=== PATIENT | male | born 1990 | race Hispanic/Latino ===

== ENCOUNTER 2021-04-25 10:12 | Emergency (ER) | payer OTHER ==
[~2021-04-25] VITALS: Ht 180.3 cm; Wt 109.6 kg
[2021-04-25] MEDS ORDERED: ONDANSETRON 4 MG ORAL DISINTEGRATING TAB PO ONE (11:45)
[2021-04-25 12:24] LABS: APPEARANCE, URINE CLEAR (CLEAR); BACTERIA, URINE AUTO NEGATIVE (NEGATIVE); BASO % 0.2 % (0.0-1.0); BILIRUBIN, URINE AUTO NEGATIVE (NEGATIVE); BLOOD, URINE BLOOD NEGATIVE (NEGATIVE); COLOR, URINE YELLOW (YELLOW); EOS % 0.3 % (0.0-3.0); GLUCOSE, URINE (UA) AUTO NEGATIVE (NEGATIVE); HEMATOCRIT 50.8 % (42.0-52.0); HEMOGLOBIN 17.2 g/dl (13.5-17.5); KETONE, URINE AUTO NEGATIVE (NEGATIVE); LEUKOCYTE ESTERASE, URINE AUTO NEGATIVE (NEGATIVE); LYMPH # 0.4 10^3/uL (1.5-5.0); LYMPH % 3.8 % (24.0-44.0); MEAN CORPUSCULAR HEMOGLOBIN 29.9 pg (27.0-33.0); MEAN CORPUSCULAR HGB CONC 33.9 g/dl (32.0-36.5); MEAN CORPUSCULAR VOLUME 88.2 fl (80.0-96.0); MONO # 0.4 10^3/uL (0.0-0.8); MONO % 3.3 % (2.0-8.0); MUCUS, URINE SMALL (NEGATIVE); NEUTROPHILS # 10.3 10^3/uL (1.5-8.5); NITRITE, URINE AUTO NEGATIVE (NEGATIVE); PLATELET COUNT, AUTOMATED 255 10^3/uL (150-450); PROTEIN, URINE AUTO 1+ mg/dL (NEGATIVE); RBC, URINE AUTO 2 /HPF (0-3); RED BLOOD COUNT 5.76 10^6/uL (4.30-6.10); SPECIFIC GRAVITY URINE AUTO 1.029 (1.002-1.035); SQUAMOUS EPITHELIAL CELL UR AU 0 /HPF (0-6); UROBILINOGEN, URINE AUTO 0.2 mg/dL (0.0-2.0); WBC, URINE AUTO 0 /HPF (0-3); WHITE BLOOD COUNT 11.2 10^3/uL (4.0-10.0)
[2021-04-25] MEDS ORDERED: ONDA4TAB6 PO (12:38)
[2021-04-25 12:50] VITALS: BP 165/93
== END 2021-04-25 12:52 | disposition home or self-care (01) ==
LOC: M ED 10:12
DX: A08.4 Viral intestinal infection, unspecified (principal); E86.0 Dehydration; R11.2 Nausea with vomiting, unspecified; R19.7 Diarrhea, unspecified; Z20.9 Contact with and (suspected) exposure to unspecified communicable disease; J30.2 Other seasonal allergic rhinitis
CPT/HCPCS: 36415; 80047; 81001; 85025; 99284; Q0162

== ENCOUNTER 2024-01-04 04:55 | Emergency (ER) | payer OTHER ==
[~2024-01-04] VITALS: Ht 188 cm; Wt 118.0 kg
[~2024-01-04 04:55] MED LIST: ONDA4TAB6 PO
[2024-01-04] MEDS ORDERED: MINI2CAP PO (05:10)
[2024-01-04 05:53] LABS: BLOOD UREA NITROGEN 25 MG/DL (9-23); CALCIUM LEVEL 8.9 MG/DL (8.5-10.1); CARBON DIOXIDE LEVEL 25 MMOL/L (20-31); CHLORIDE LEVEL 104 MMOL/L (98-107); CREATININE FOR GFR 1.27 MG/DL (0.70-1.30); GLOMERULAR FILTRATION RATE > 60.0 (>60); GLUCOSE, FASTING 143 MG/DL (60-100); POTASSIUM SERUM 3.9 MMOL/L (3.5-5.1); SODIUM LEVEL 138 MMOL/L (136-145)
[2024-01-04 06:14] LABS: BASO % 0.5 % (0.0-1.0); EOS # 0.2 10^3/uL (0.0-0.5); EOS % 2.1 % (0.0-3.0); HEMATOCRIT 44.6 % (42.0-52.0); HEMOGLOBIN 15.5 g/dl (13.5-17.5); LYMPH # 3.3 10^3/uL (1.5-5.0); LYMPH % 42.3 % (24.0-44.0); MEAN CORPUSCULAR HEMOGLOBIN 30.4 pg (27.0-33.0); MEAN CORPUSCULAR HGB CONC 34.8 g/dl (32.0-36.5); MEAN CORPUSCULAR VOLUME 87.5 fl (80.0-96.0); MONO # 0.6 10^3/uL (0.0-0.8); MONO % 8.1 % (2.0-8.0); NEUTROPHILS # 3.6 10^3/uL (1.5-8.5); NEUTROPHILS % 46.6 % (36.0-66.0); PLATELET COUNT, AUTOMATED 258 10^3/uL (150-450); WHITE BLOOD COUNT 7.8 10^3/uL (4.0-10.0)
[2024-01-04] MEDS: NS 1,000 ML IV ONE (06:15)
[2024-01-04 08:10] VITALS: BP 114/59; TEMP 97.9; O2SAT 99
== END 2024-01-04 08:24 | disposition home or self-care (01) ==
LOC: M ED 04:55 → EDBD 04:55 → M ED 08:24
DX: R55 Syncope and collapse (principal); T46.5X5A Adverse effect of other antihypertensive drugs, initial encounter; E86.0 Dehydration; F43.10 Post-traumatic stress disorder, unspecified; G47.33 Obstructive sleep apnea (adult) (pediatric); Z79.899 Other long term (current) drug therapy

== ENCOUNTER 2024-05-07 11:23 | Emergency (ER) | payer OTHER ==
[~2024-05-07] VITALS: Ht 180.3 cm; Wt 124.1 kg
[~2024-05-07 11:23] MED LIST changes: +MINI2CAP PO; +ONDA-282 PO; -ONDA4TAB6 PO
[2024-05-07 13:02] LABS: ALBUMIN 3.9 G/DL (3.2-5.2); ALKALINE PHOSPHATASE 86 U/L (46-116); ALT/SGPT 89 U/L (7.0-40); AST/SGOT 54 U/L (<34); BILIRUBIN,DIRECT 0.3 MG/DL (<0.4); BILIRUBIN,TOTAL 1.4 MG/DL (0.3-1.2); BLOOD UREA NITROGEN 12 MG/DL (9-23); CALCIUM LEVEL 9.1 MG/DL (8.5-10.1); CARBON DIOXIDE LEVEL 25 MMOL/L (20-31); CHLORIDE LEVEL 109 MMOL/L (98-107); CREATININE FOR GFR 0.96 MG/DL (0.70-1.30); GLOMERULAR FILTRATION RATE > 60.0 (>60); GLUCOSE, FASTING 92 MG/DL (60-100); LIPASE 36 U/L (12-53); POTASSIUM SERUM 4.4 MMOL/L (3.5-5.1); SODIUM LEVEL 141 MMOL/L (136-145)
[2024-05-07 13:51] LABS: BASO # 0.1 10^3/uL (0.0-0.2); BASO % 0.8 % (0.0-1.0); EOS # 0.5 10^3/uL (0.0-0.5); EOS % 7.4 % (0.0-3.0); HEMATOCRIT 45.3 % (42.0-52.0); HEMOGLOBIN 15.7 g/dl (13.5-17.5); LYMPH # 1.9 10^3/uL (1.5-5.0); LYMPH % 30.8 % (24.0-44.0); MEAN CORPUSCULAR HEMOGLOBIN 29.8 pg (27.0-33.0); MEAN CORPUSCULAR HGB CONC 34.7 g/dl (32.0-36.5); MEAN CORPUSCULAR VOLUME 86.1 fl (80.0-96.0); MONO # 0.6 10^3/uL (0.0-0.8); MONO % 9.8 % (2.0-8.0); NEUTROPHILS # 3.2 10^3/uL (1.5-8.5); NEUTROPHILS % 50.9 % (36.0-66.0); PLATELET COUNT, AUTOMATED 264 10^3/uL (150-450); RED BLOOD COUNT 5.26 10^6/uL (4.30-6.10); WHITE BLOOD COUNT 6.2 10^3/uL (4.0-10.0)
[2024-05-07] MEDS: METOCLOPRAMIDE INJ 10MG/2ML VIAL IV ONE (13:54)
[2024-05-07] MEDS: ONDANSETRON 4MG 2ML VIAL IV ONE (13:54)
[2024-05-07] MEDS: NS 1,000 ML IV ONE (13:55)
[2024-05-07] MEDS ORDERED: HYDR-3363 PO (14:08)
[2024-05-07] MEDS ORDERED: PRAZ1CAP PO (14:08)
[2024-05-07] MEDS ORDERED: DULO1CAP5 PO (14:08)
[2024-05-07] MEDS ORDERED: METO200T15 PO (14:08)
[2024-05-07] MEDS ORDERED: VITA200032 PO (14:08)
[2024-05-07] MEDS ORDERED: ONDA-282 PO (15:53)
[2024-05-07] MEDS ORDERED: LOPE1CAP5 PO (15:53)
[2024-05-07 16:21] VITALS: BP 135/92; TEMP 96.5; O2SAT 99
== END 2024-05-07 16:23 | disposition home or self-care (01) ==
LOC: M ED 11:23
DX: K76.0 Fatty (change of) liver, not elsewhere classified (principal); A04.4 Other intestinal Escherichia coli infections; A08.11 Acute gastroenteropathy due to Norwalk agent; J30.2 Other seasonal allergic rhinitis
CPT/HCPCS: 76705; 80048; 80076; 81001; 83690; 85025; 87507; 96361; 96374; 96375; 99284; J2405; J2765

== ENCOUNTER 2024-06-01 19:28 | Emergency (ER) | payer OTHER ==
[~2024-06-01] VITALS: Ht 180.3 cm; Wt 125.3 kg
[~2024-06-01 19:28] MED LIST changes: +DULO1CAP5 PO; +HYDR-3363 PO; +LOPE1CAP5 PO; +METO200T15 PO; +PRAZ1CAP PO; +VITA200032 PO
[2024-06-01 19:29] VITALS: BP 146/100; TEMP 98.3; O2SAT 97
== END 2024-06-01 19:50 | disposition left against medical advice (07) ==
LOC: M ED 19:28
DX: Z53.21 Procedure and treatment not carried out due to patient leaving prior to being seen by health care provider (principal)

== ENCOUNTER 2024-06-24 15:26 | Emergency (ER) | payer OTHER ==
[~2024-06-24] VITALS: Ht 180.3 cm; Wt 124.4 kg
[2024-06-24 15:26] VITALS: TEMP 97.9
[2024-06-24] MEDS ORDERED: PRAV40TA2 (15:33)
[2024-06-24 16:22] LABS: BASO % 0.5 % (0.0-1.0); EOS # 0.2 10^3/uL (0.0-0.5); EOS % 2.3 % (0.0-3.0); HEMOGLOBIN 16.4 g/dl (13.5-17.5); LYMPH # 2.3 10^3/uL (1.5-5.0); MEAN CORPUSCULAR HEMOGLOBIN 30.6 pg (27.0-33.0); MEAN CORPUSCULAR HGB CONC 35.7 g/dl (32.0-36.5); MEAN CORPUSCULAR VOLUME 85.8 fl (80.0-96.0); MONO # 0.7 10^3/uL (0.0-0.8); MONO % 8.6 % (2.0-8.0); NEUTROPHILS # 4.3 10^3/uL (1.5-8.5); NEUTROPHILS % 57.3 % (36.0-66.0); PLATELET COUNT, AUTOMATED 289 10^3/uL (150-450); RED BLOOD COUNT 5.36 10^6/uL (4.30-6.10); WHITE BLOOD COUNT 7.5 10^3/uL (4.0-10.0)
[2024-06-24 16:49] LABS: BLOOD UREA NITROGEN 17 MG/DL (9-23); CALCIUM LEVEL 9.7 MG/DL (8.5-10.1); CARBON DIOXIDE LEVEL 26 MMOL/L (20-31); CHLORIDE LEVEL 106 MMOL/L (98-107); CK-MB VALUE MASS < 1.0 NG/ML (<3.6); CREATININE FOR GFR 1.17 MG/DL (0.70-1.30); GLOMERULAR FILTRATION RATE > 60.0 (>60); GLUCOSE, FASTING 98 MG/DL (60-100); POTASSIUM SERUM 4.2 MMOL/L (3.5-5.1); SODIUM LEVEL 139 MMOL/L (136-145)
[2024-06-24 17:01] LABS: CPK CREATINE PHOSPHOKINASE 144 U/L (46-171); MB/CK RELATIVE INDEX 0.69 (< OR =4)
[2024-06-24 17:53] LABS: CK-MB VALUE MASS < 1.0 NG/ML (<3.6)
[2024-06-24 17:58] LABS: CPK CREATINE PHOSPHOKINASE 138 U/L (46-171); MB/CK RELATIVE INDEX 0.72 (< OR =4)
[2024-06-24 18:33] VITALS: BP 120/80; O2SAT 97
== END 2024-06-24 18:37 | disposition home or self-care (01) ==
LOC: M ED 15:26
DX: T75.4XXA Electrocution, initial encounter (principal); I10 Essential (primary) hypertension; F43.10 Post-traumatic stress disorder, unspecified; F32.A Depression, unspecified; J30.2 Other seasonal allergic rhinitis; Z79.899 Other long term (current) drug therapy

== ENCOUNTER → 2024-09-09 | Outpatient (CLI) | payer OTHER ==
[~2024-09-09] MED LIST changes: +HOLTER MONITOR XX; +PRAV40TA2
== END ==
LOC: M SLEEP 20:00
PROVIDERS: ATTEND Internal Medicine
DX: G47.33 Obstructive sleep apnea (adult) (pediatric) (principal)

== ENCOUNTER 2024-09-12 11:33 | Emergency (ER) | payer OTHER ==
[~2024-09-12] VITALS: Ht 180.3 cm; Wt 118.4 kg
[~2024-09-12 11:33] MED LIST changes: -HOLTER MONITOR XX
[2024-09-12 13:16] LABS: BASO % 0.4 % (0.0-1.0); EOS # 0.1 10^3/uL (0.0-0.5); EOS % 1.6 % (0.0-3.0); HEMATOCRIT 45.8 % (42.0-52.0); HEMOGLOBIN 15.7 g/dl (13.5-17.5); LYMPH # 1.9 10^3/uL (1.5-5.0); LYMPH % 27.4 % (24.0-44.0); MEAN CORPUSCULAR HEMOGLOBIN 30.3 pg (27.0-33.0); MEAN CORPUSCULAR HGB CONC 34.3 g/dl (32.0-36.5); MEAN CORPUSCULAR VOLUME 88.4 fl (80.0-96.0); MONO # 0.6 10^3/uL (0.0-0.8); MONO % 8.5 % (2.0-8.0); NEUTROPHILS # 4.4 10^3/uL (1.5-8.5); PLATELET COUNT, AUTOMATED 248 10^3/uL (150-450); RED BLOOD COUNT 5.18 10^6/uL (4.30-6.10); WHITE BLOOD COUNT 7.1 10^3/uL (4.0-10.0)
[2024-09-12 13:55] LABS: CK-MB VALUE MASS < 1.0 NG/ML (<3.6)
[2024-09-12 13:56] LABS: BLOOD UREA NITROGEN 15 MG/DL (9-23); CALCIUM LEVEL 9.6 MG/DL (8.5-10.1); CARBON DIOXIDE LEVEL 29 MMOL/L (20-31); CHLORIDE LEVEL 109 MMOL/L (98-107); CREATININE FOR GFR 1.09 MG/DL (0.70-1.30); GLOMERULAR FILTRATION RATE > 60.0 (>60); GLUCOSE, FASTING 97 MG/DL (60-100); POTASSIUM SERUM 4.1 MMOL/L (3.5-5.1); SODIUM LEVEL 140 MMOL/L (136-145)
[2024-09-12 14:02] LABS: CPK CREATINE PHOSPHOKINASE 211 U/L (46-171); MB/CK RELATIVE INDEX 0.47 (< OR =4)
[2024-09-12 14:59] LABS: CK-MB VALUE MASS < 1.0 NG/ML (<3.6)
[2024-09-12 15:03] LABS: FREE T4 1.28 NG/DL (0.89-1.76)
[2024-09-12 15:04] LABS: THYROID STIMULATING HORMONE 0.797 uIU/ML (0.55-4.78)
[2024-09-12 15:08] LABS: CPK CREATINE PHOSPHOKINASE 205 U/L (46-171); MB/CK RELATIVE INDEX 0.48 (< OR =4)
[2024-09-12] MEDS ORDERED: HOLTER MONITOR XX (15:19)
[2024-09-12 15:31] VITALS: BP 124/61; O2SAT 98
[2024-09-12 15:47] VITALS: TEMP 97.7
== END 2024-09-12 15:50 | disposition home or self-care (01) ==
LOC: M ED 11:33
DX: R00.2 Palpitations (principal); I49.3 Ventricular premature depolarization; I10 Essential (primary) hypertension; F32.A Depression, unspecified; F43.10 Post-traumatic stress disorder, unspecified; G47.33 Obstructive sleep apnea (adult) (pediatric); J30.2 Other seasonal allergic rhinitis; Z79.899 Other long term (current) drug therapy

== ENCOUNTER → 2024-09-14 | Outpatient (CLI) | payer OTHER ==
[~2024-09-14] MED LIST changes: +HOLTER MONITOR XX
== END ==
LOC: M EKG 09:55
PROVIDERS: ATTEND Physician Assistant Medical
DX: R00.2 Palpitations (principal)

== ENCOUNTER → 2024-09-15 | Outpatient (CLI) | payer OTHER | LOC: M PLAIMG 07:25 | PROVIDERS: ATTEND Internal Medicine | DX: M25.572 Pain in left ankle and joints of left foot (principal) ==

== ENCOUNTER 2024-10-18 12:38 | Emergency (ER) | payer OTHER ==
[~2024-10-18] VITALS: Ht 180.3 cm; Wt 111.4 kg
[2024-10-18] MEDS ORDERED: ANDR1.62 TOP (12:55)
[2024-10-18 13:30] LABS: BASO % 0.3 % (0.0-1.0); EOS # 0.1 10^3/uL (0.0-0.5); EOS % 0.8 % (0.0-3.0); HEMATOCRIT 46.8 % (42.0-52.0); LYMPH # 1.6 10^3/uL (1.5-5.0); LYMPH % 21.8 % (24.0-44.0); MEAN CORPUSCULAR HEMOGLOBIN 29.5 pg (27.0-33.0); MEAN CORPUSCULAR HGB CONC 34.2 g/dl (32.0-36.5); MEAN CORPUSCULAR VOLUME 86.2 fl (80.0-96.0); MONO # 0.6 10^3/uL (0.0-0.8); MONO % 8.6 % (2.0-8.0); NEUTROPHILS % 68.2 % (36.0-66.0); PLATELET COUNT, AUTOMATED 285 10^3/uL (150-450); RED BLOOD COUNT 5.43 10^6/uL (4.30-6.10); WHITE BLOOD COUNT 7.3 10^3/uL (4.0-10.0)
[2024-10-18 14:02] LABS: ALKALINE PHOSPHATASE 86 U/L (40-129); ALT/SGPT 33 U/L (7.0-40); AST/SGOT 18 U/L (<34); BILIRUBIN,DIRECT 0.4 MG/DL (<0.4); BILIRUBIN,TOTAL 1.5 MG/DL (0.3-1.2); BLOOD UREA NITROGEN 15 MG/DL (9-23); CALCIUM LEVEL 9.9 MG/DL (8.5-10.1); CARBON DIOXIDE LEVEL 28 MMOL/L (20-31); CHLORIDE LEVEL 104 MMOL/L (98-107); CK-MB VALUE MASS < 1.0 NG/ML (<3.6); CREATININE FOR GFR 1.04 MG/DL (0.70-1.30); GLOMERULAR FILTRATION RATE > 60.0 (>60); GLUCOSE, FASTING 91 MG/DL (60-100); POTASSIUM SERUM 4.2 MMOL/L (3.5-5.1); SODIUM LEVEL 139 MMOL/L (136-145); TOTAL PROTEIN 7.7 G/DL (5.7-8.2)
[2024-10-18 14:03] LABS: CPK CREATINE PHOSPHOKINASE 142 U/L (46-171)
[2024-10-18 15:02] LABS: CK-MB VALUE MASS < 1.0 NG/ML (<3.6)
[2024-10-18 15:07] LABS: CPK CREATINE PHOSPHOKINASE 140 U/L (46-171); MB/CK RELATIVE INDEX 0.71 (< OR =4)
[2024-10-18 16:07] VITALS: BP 128/84; TEMP 98.1; O2SAT 96
== END 2024-10-18 16:08 | disposition home or self-care (01) ==
LOC: EDBD 12:38 → M ED 12:38
DX: R55 Syncope and collapse (principal); I10 Essential (primary) hypertension; F32.A Depression, unspecified; F43.10 Post-traumatic stress disorder, unspecified; J30.2 Other seasonal allergic rhinitis; Z79.890 Hormone replacement therapy; Z79.899 Other long term (current) drug therapy

== ENCOUNTER 2024-11-10 18:12 | Emergency (ER) | payer OTHER ==
[~2024-11-10] VITALS: Ht 180.3 cm; Wt 117.1 kg
[~2024-11-10 18:12] MED LIST changes: +ANDR1.62 TOP
[2024-11-10 20:44] VITALS: BP 143/92; TEMP 97.4; O2SAT 98
== END 2024-11-10 21:40 | disposition left against medical advice (07) ==
LOC: M ED 18:12
DX: Z53.21 Procedure and treatment not carried out due to patient leaving prior to being seen by health care provider (principal)